=== PATIENT | female | born 1965 | race Two or more races ===

== ENCOUNTER 2020-03-19 10:29 | Emergency (ER) | payer OTHER ==
[~2020-03-19] VITALS: Ht 162.6 cm; Wt 93.4 kg
--- NOTE | 2020-03-19 10:44 | NUR ---
Dr Garcia at the bedside for MSE.
[2020-03-19] MEDS ORDERED: HYDROCODONE/APAP 5-325MG TABLET PO ONE (11:00)
[2020-03-19] MEDS ORDERED: AMOXICILLIN-CLAVUL 875-125MG TABLET PO ONE (11:00)
[2020-03-19] MEDS ORDERED: AMOXICILLIN-CLAVUL 875-125MG TABLET ONE (11:06)
[2020-03-19] MEDS ORDERED: HYDROCODONE/APAP 5-325MG TABLET ONE (11:07)
[2020-03-19] MEDS ORDERED: NEOMY/BACITRA/POLYMYXIN B OINT UD PACKET TP ONE ×2 (11:15→11:20)
--- NOTE | 2020-03-19 11:33 | NUR ---
Patient discharged to home in stable condition. Written and verbal after care instructions given. Patient verbalizes understanding of instructions. Stressed follow up or return to ER for worsening s/s.
[2020-03-19 11:46] VITALS: BP 150/90
== END 2020-03-19 11:47 | disposition home or self-care (01) ==
LOC: ER 10:29
DX: S61.412A Laceration without foreign body of left hand, initial encounter (principal); W54.0XXA Bitten by dog, initial encounter; Y93.89 Activity, other specified; Y92.039 Unspecified place in apartment as the place of occurrence of the external cause; Z91.013 Allergy to seafood
CPT/HCPCS: A4217; A4663

== ENCOUNTER 2020-03-21 18:29 | Emergency (ER) | payer OTHER ==
[~2020-03-21] VITALS: Ht 162.6 cm; Wt 93.0 kg
--- NOTE | 2020-03-21 18:53 | NUR ---
Dr [email or web address], medical screening exam in progress
[2020-03-21] MEDS ORDERED: PIPERACILLIN SODIUM/TAZOBACTAM 3.375 G in IV DEXTROSE 5% 50 ML IV ONE (19:00)
[2020-03-21] MEDS ORDERED: VANCOMYCIN IV 1,000 MG in IV DEXTROSE 5% 250 ML IV ONE (19:00)
[2020-03-21] MEDS ORDERED: PIPERACILLIN/TAZOBACTAM/D5W 50 ML IV ONE (19:24)
[2020-03-21] MEDS ORDERED: VANCOMYCIN IV 200 ML ONE (19:24)
--- NOTE | 2020-03-21 19:33 | NUR ---
Left hand wound, redness and swelling noted, wound left open to air per MD orders
[2020-03-21] MEDS ORDERED: NEOMY/BACITRA/POLYMYXIN B OINT UD PACKET TP ONE (20:35)
--- NOTE | 2020-03-21 21:38 | NUR ---
Left hand wound redressed per MD orders
--- NOTE | 2020-03-21 22:12 | NUR ---
IV removed at this time, Patient discharged to home in stable condition. Written and verbal after care instructions given. no signs of acute distess, took all belongings, understood discharge instructions.Patient verbalizes understanding of instructions. Stressed follow up or return to ER for worsening s/s.
[2020-03-21 22:15] VITALS: BP 128/76
== END 2020-03-21 22:10 | disposition home or self-care (01) ==
LOC: ER 18:31
DX: S61.412D Laceration without foreign body of left hand, subsequent encounter (principal); L08.9 Local infection of the skin and subcutaneous tissue, unspecified; W54.0XXD Bitten by dog, subsequent encounter; Z91.013 Allergy to seafood; R03.0 Elevated blood-pressure reading, without diagnosis of hypertension
CPT/HCPCS: 73130; 87070; 96365; 96366; 96368; 99284; J2543; J3370; A4217; A4663

== ENCOUNTER 2020-03-22 05:59 | Emergency (ER) | payer OTHER ==
[~2020-03-22] VITALS: Ht 162.6 cm; Wt 93.4 kg
--- NOTE | 2020-03-22 06:02 | NUR ---
at bedside for assessment
[2020-03-22] MEDS ORDERED: PIPERACILLIN/TAZOBACTAM/D5W 50 ML IV ONE (06:13)
[2020-03-22] MEDS ORDERED: PIPERACILLIN SODIUM/TAZOBACTAM 3.375 G in IV DEXTROSE 5% 50 ML IV ONE (06:15)
[2020-03-22] MEDS ORDERED: NEOMY/BACITRA/POLYMYXIN B OINT UD PACKET TP ONE ×2 (06:26→06:30)
[2020-03-22] MEDS ORDERED: SULFAMETH/TRIMETH 800/160 MG TABLET ONE (06:26)
[2020-03-22] MEDS ORDERED: SULFAMETH/TRIMETH 800/160 MG TABLET PO ONE (06:30)
--- NOTE | 2020-03-22 06:45 | NUR ---
left palm dressed with nonadheren dressing, Patient discharged to home in stable condition. Written and verbal after care instructions given. No signs of acute distress, took all belongings. Patient verbalizes understanding of instructions. Stressed follow up or return to ER for worsening s/s.
[2020-03-22 06:47] VITALS: BP 129/89
== END 2020-03-22 06:48 | disposition home or self-care (01) ==
LOC: ER 06:01
DX: S61.412D Laceration without foreign body of left hand, subsequent encounter (principal); L08.9 Local infection of the skin and subcutaneous tissue, unspecified; W54.0XXD Bitten by dog, subsequent encounter
CPT/HCPCS: 96365; 99284; J2543; A4663

== ENCOUNTER 2020-03-24 18:52 | Emergency (ER) | payer OTHER ==
[~2020-03-24] VITALS: Ht 162.6 cm; Wt 93.4 kg
--- NOTE | 2020-03-24 19:10 | NUR ---
Dr Garcia at bedside for MSE.
[2020-03-24] MEDS ORDERED: NEOMY/BACITRA/POLYMYXIN B OINT UD PACKET TP ONE ×2 (19:15→19:20)
--- NOTE | 2020-03-24 19:33 | NUR ---
Wound dressing done as ordered by MD. Tolerated well. Patient discharged to home in stable condition. Written and verbal after care instructions given. Patient verbalizes understanding of instructions. Stressed follow up to hand specialist or return to ER for worsening s/s. Ambulated out of ED in steady gait, and stable condition.
[2020-03-24 19:36] VITALS: BP 125/70
== END 2020-03-24 19:36 | disposition home or self-care (01) ==
LOC: ER 18:52
DX: S61.412D Laceration without foreign body of left hand, subsequent encounter (principal); W54.0XXD Bitten by dog, subsequent encounter; Z91.013 Allergy to seafood
CPT/HCPCS: A4217; A4663